=== PATIENT | female | born 1975 | race Caucasian/White ===

== ENCOUNTER → 2020-07-01 | Outpatient (CLI) | payer MEDICAID ==
--- OUTSIDE RECORDS SUMMARY | 2020-07-01 15:20 | XMS REPORT ---
:1975 Author Organization Formerly [facility] Address [address] [address] Care Team Providers Name Role Phone Unavailable Unavailable Unavailable Allergies, Adverse Reactions, Alerts This patient has no known allergies or adverse reactions. Medications This patient has no known medications. Problems This patient has no known problems. Procedures This patient has no known procedures. Results This patient has no known results. Social History This patient has no known social history. Vital Signs This patient has no known vital signs.
--- NOTE | 2020-07-01 16:03 | RADIOLOGY REPORT (SQ) ---
EXAM DESCRIPTION: TOES RIGHT IMAGES COMPLETED DATE/TIME: 07/01/2020 3:43 pm REASON FOR STUDY: PAIN OF RIGHT GREAT TOE M79.674 PAIN IN RIGHT TOE(S) M79.644 PAIN IN RIGHT FINGE R(S) COMPARISON: None. NUMBER OF VIEWS: Three views. TECHNIQUE: AP, lateral, and oblique images acquired of the right first toe. LIMITATIONS: None. FINDINGS: MINERALIZATION: Normal. BONES: No acute fracture or dislocation. No worrisome bone lesions. JOINTS: Mild degenerative changes in the interphalangeal joint and metatarsophalangeal joint. SOFT TISSUES: No soft tissue swelling. No foreign body. OTHER: No other significant finding. IMPRESSION: Mild degenerative changes. COMMENT: SITE OF TRAUMA/COMPLAINT MARKED/STAMP COMPLETED: YES. TECHNICAL DOCUMENTATION: JOB ID: [id number] 2010 [employer]- All Rights Reserved Reading location - IP/workstation name: [email or web address]
--- NOTE | 2020-07-01 16:14 | RADIOLOGY REPORT (SQ) ---
EXAM DESCRIPTION: FINGERS RIGHT IMAGES COMPLETED DATE/TIME: 07/01/2020 3:43 pm REASON FOR STUDY: PAIN IN FINGER OF RIGHT HAND M79.674 PAIN IN RIGHT TOE(S) M79.644 PAIN IN RIGHT FINGER(S) COMPARISON: None. NUMBER OF VIEWS: Three views. TECHNIQUE: AP, lateral, and oblique images acquired of the right fifth finger. LIMITATIONS: None. FINDINGS: MINERALIZATION: Normal. BONES: No acute fracture or dislocation. No worrisome bone lesions. JOINTS: Joint space narrowing with central erosion distal interphalangeal joint. SOFT TISSUES: No swelling. No calcifications. OTHER: No other significant finding. IMPRESSION: Erosive osteoarthritis. COMMENT: SITE OF TRAUMA/COMPLAINT MARKED/STAMP COMPLETED: YES. TECHNICAL DOCUMENTATION: JOB ID: [id number] 2010 [employer]- All Rights Reserved Reading location - IP/workstation name: [email or web address]
== END ==
LOC: OD 15:17
PROVIDERS: ATTEND Nurse Practitioner Family
DX: M79.644 Pain in right finger(s) (principal); M79.674 Pain in right toe(s)

== ENCOUNTER → 2020-09-10 | Outpatient (CLI) | payer MEDICAID | LOC: OD 12:53 | PROVIDERS: ATTEND Nurse Practitioner Family | DX: R20.2 Paresthesia of skin (principal); Z83.49 Family history of other endocrine, nutritional and metabolic diseases | CPT/HCPCS: 36415; 84443 ==